=== PATIENT | male | born 1995 | race Caucasian/White ===

== ENCOUNTER 2017-10-04 02:53 | Emergency (ER) | payer OTHER ==
[~2017-10-04] VITALS: Ht 180.3 cm; Wt 75.3 kg
[2017-10-04 02:55] VITALS: BP 127/86
[2017-10-04] MEDS ORDERED: LIDOCAINE-MPF 1%, 5ML ONE (03:19)
[2017-10-04] MEDS ORDERED: LIDOCAINE-MPF 1%, 5ML INFIL ONE (03:30)
[2017-10-04] MEDS ORDERED: BACITRACIN ZINC OINT 500U/GM, 0.9 GM ONE (04:46)
== END 2017-10-04 05:00 | disposition home or self-care (01) ==
LOC: ED 03:33
DX: S02.40DB Maxillary fracture, left side, initial encounter for open fracture (principal); S01.412A Laceration without foreign body of left cheek and temporomandibular area, initial encounter; S06.9X0A Unspecified intracranial injury without loss of consciousness, initial encounter; Y08.89XA Assault by other specified means, initial encounter; Y93.89 Activity, other specified; Y92.89 Other specified places as the place of occurrence of the external cause; Y99.8 Other external cause status
CPT/HCPCS: 12051; 70450; 99284